=== PATIENT | female | born 1980 | race African-American/Black ===

== ENCOUNTER 2019-12-23 01:57 | Emergency (ER) | payer MEDICAID ==
[~2019-12-23] VITALS: Ht 167.6 cm; Wt 91.0 kg
[~2019-12-23 01:57] MED LIST: ALBU6.7H11; NASOI; SITA1TAB8 PO
[2019-12-23 03:55] LABS: BASOPHILS % 0.9 % (0.0-2.0); EOSINOPHILS % 1.5 % (0.0-5.0); HEMATOCRIT. 37.1 % (36.0-48.0); HEMOGLOBIN. 12.4 g/dL (12.0-16.0); LYMPHOCYTES % 30.4 % (20.0-50.0); MEAN CORPUSCULAR HEMOGLOBIN 30.2 pg (28.0-32.0); MEAN CORPUSCULAR VOLUME 90.2 fL (81.0-99.0); MEAN PLATELET VOLUME 8.9 fl (7.4-10.4); MONOCYTES % 7.8 % (2.0-8.0); NEUTROPHILS % 59.4 % (40.0-76.0); PLATELET 371 x1000/uL (130-400); RED BLOOD CELL COUNT 4.11 mill/uL (4.2-5.4); RED CELL DISTRIBUTION WIDTH 13.9 % (11.6-14.6)
[2019-12-23 04:05] LABS: CHLORIDE 106 mEq/L (98-107)
[2019-12-23 05:08] VITALS: BP 96/65
== END 2019-12-23 05:09 | disposition home or self-care (01) ==
LOC: ER 01:57
DX: R07.89 Other chest pain (principal); M25.512 Pain in left shoulder; E11.9 Type 2 diabetes mellitus without complications; J45.909 Unspecified asthma, uncomplicated
CPT/HCPCS: 36415; 71045; 80053; 81025; 84484; 85025; 85379; 93005; 99285

== ENCOUNTER 2021-12-24 10:30 | Emergency (ER) | payer MEDICAID ==
[~2021-12-24] VITALS: Ht 165.1 cm; Wt 97.0 kg
[~2021-12-24 10:30] MED LIST changes: -ALBU6.7H11; +ALBU6.7H15
[2021-12-24] MEDS ORDERED: LACTATED RINGERS 1,000 ML IV SCH (10:45)
[2021-12-24 11:23] LABS: BASOPHILS % 0.6 % (0.0-2.0); EOSINOPHILS % 0.8 % (0.0-5.0); HEMATOCRIT. 40.8 % (36.0-48.0); HEMOGLOBIN. 13.6 g/dL (12.0-16.0); LYMPHOCYTES % 28.1 % (20.0-50.0); MEAN CORPUSCULAR HEMOGLOBIN 30.3 pg (28.0-32.0); MEAN CORPUSCULAR VOLUME 91.1 fL (81.0-99.0); MEAN PLATELET VOLUME 8.9 fl (7.4-10.4); MONOCYTES % 5.5 % (2.0-8.0); PLATELET 405 x1000/uL (130-400); RED BLOOD CELL COUNT 4.48 mill/uL (4.2-5.4); RED CELL DISTRIBUTION WIDTH 12.8 % (11.6-14.6)
[2021-12-24 11:29] LABS: CHLORIDE 104 mEq/L (98-107)
[2021-12-24 11:35] LABS: BETA HYDROXYBUTYRATE 0.2 mMol/L (0.0-0.3)
[2021-12-24] MEDS ORDERED: METF-874 MT (14:53)
[2021-12-24] MEDS ORDERED: DULA0.75 SQ (14:53)
[2021-12-24] MEDS ORDERED: GLIP10TA10 MT (14:53)
[2021-12-24] MEDS ORDERED: METFORMIN HCL 500MG TABLET PO ONE (15:00)
[2021-12-24] MEDS ORDERED: GLIPIZIDE XL 2.5MG TABLET PO ONE (15:00)
[2021-12-24 15:20] VITALS: BP 109/72
[2021-12-24] MEDS ORDERED: METF-416 MT (15:56)
== END 2021-12-24 15:30 | disposition home or self-care (01) ==
LOC: ER 10:30
DX: E11.65 Type 2 diabetes mellitus with hyperglycemia (principal); Z76.0 Encounter for issue of repeat prescription; J45.909 Unspecified asthma, uncomplicated; Z91.040 Latex allergy status; Z88.2 Allergy status to sulfonamides; Z88.8 Allergy status to other drugs, medicaments and biological substances; Z79.899 Other long term (current) drug therapy; Z98.890 Other specified postprocedural states
CPT/HCPCS: 36415; 80053; 82010; 82962; 83605; 83880; 84484; 85025; 99283

== ENCOUNTER 2022-04-14 09:35 | Emergency (ER) | payer MEDICAID ==
[~2022-04-14] VITALS: Ht 165.1 cm; Wt 96.0 kg
[~2022-04-14 09:35] MED LIST changes: +DULA0.75 SQ; +GLIP10TA10 MT; +METF-416 MT; +METF-874 MT
[2022-04-14 10:25] VITALS: BP 98/66
[2022-04-14] MEDS ORDERED: KETOROLAC 30MG/ML VIAL IV STA (10:32)
[2022-04-14] MEDS ORDERED: ONDANSETRON HCL 4MG/2ML INJ IV STA (10:32)
[2022-04-14] MEDS ORDERED: SODIUM CHLORIDE 0.9% 1,000 ML IV ONE (10:45)
[2022-04-14 10:48] LABS: BASOPHILS % 0.7 % (0.0-2.0); HEMATOCRIT. 42.1 % (36.0-48.0); LYMPHOCYTES % 25.2 % (20.0-50.0); MEAN CORPUSCULAR HEMOGLOBIN 30.4 pg (28.0-32.0); MEAN CORPUSCULAR VOLUME 91.5 fL (81.0-99.0); MEAN PLATELET VOLUME 9.3 fl (7.4-10.4); NEUTROPHILS % 65.1 % (40.0-76.0); PLATELET 425 x1000/uL (130-400); RED CELL DISTRIBUTION WIDTH 13.8 % (11.6-14.6)
[2022-04-14 10:50] LABS: CLARITY URINE CLEAR (CLEAR); COLOR URINE YELLOW (YELLOW); KETONES URINE 1+ (NEGATIVE); LEUKOCYTE ESTERASE URINE NEGATIVE (NEGATIVE); NITRITE URINE NEGATIVE (NEGATIVE); OCCULT BLOOD URINE NEGATIVE (NEGATIVE); PH URINE 5.5 (4.5-8.0); PROTEIN URINE NEGATIVE (NEGATIVE); SPECIFIC GRAVITY URINE 1.025 (1.005-1.030)
[2022-04-14 10:53] LABS: CHLORIDE 105 mEq/L (98-107)
[2022-04-14] MEDS ORDERED: LACT10SO30 MT (12:09)
== END 2022-04-14 12:21 | disposition home or self-care (01) ==
LOC: ER 09:35
DX: R11.2 Nausea with vomiting, unspecified (principal); T50.995A Adverse effect of other drugs, medicaments and biological substances, initial encounter; Y92.9 Unspecified place or not applicable; J45.901 Unspecified asthma with (acute) exacerbation; E11.9 Type 2 diabetes mellitus without complications; Z79.4 Long term (current) use of insulin; Z88.2 Allergy status to sulfonamides; Z88.8 Allergy status to other drugs, medicaments and biological substances; Z91.040 Latex allergy status
CPT/HCPCS: 36415; 70450; 80053; 81003; 83690; 85025; 96361; 96374; 96375; 99284; J1885; J2405; J7030

== ENCOUNTER 2022-08-16 10:10 | Emergency (ER) | payer MEDICAID, OTHER ==
[~2022-08-16] VITALS: Ht 162.6 cm; Wt 93.0 kg
[~2022-08-16 10:10] MED LIST changes: +LACT10SO30 MT
[2022-08-16] MEDS ORDERED: ALBUTEROL (0.083%) 2.5MG/3ML NEB HHN STA (10:34)
[2022-08-16] MEDS ORDERED: IPRATROPIUM BROMIDE (0.02%) 0.5MG/2.5ML NEB HHN STA (10:34)
[2022-08-16] MEDS ORDERED: PREDNISONE 20MG TABLET PO STA (10:34)
[2022-08-16 10:45] LABS: BASOPHILS % 0.7 % (0.0-2.0); EOSINOPHILS % 3.2 % (0.0-5.0); HEMATOCRIT. 38.3 % (36.0-48.0); HEMOGLOBIN. 13.1 g/dL (12.0-16.0); MEAN CORPUSCULAR HEMOGLOBIN 31.3 pg (28.0-32.0); MEAN CORPUSCULAR VOLUME 91.7 fL (81.0-99.0); MEAN PLATELET VOLUME 8.8 fl (7.4-10.4); NEUTROPHILS % 66.1 % (40.0-76.0); PLATELET 410 x1000/uL (130-400); RED BLOOD CELL COUNT 4.17 mill/uL (4.2-5.4); RED CELL DISTRIBUTION WIDTH 13.5 % (11.6-14.6)
[2022-08-16 11:00] LABS: CHLORIDE 103 mEq/L (98-107)
[2022-08-16 11:06] LABS: HCG SCREEN NEGATIVE
[2022-08-16] MEDS ORDERED: PRED10TA MT (13:11)
[2022-08-16 14:03] VITALS: BP 109/75
== END 2022-08-16 14:08 | disposition home or self-care (01) ==
LOC: ER 10:10
DX: J45.901 Unspecified asthma with (acute) exacerbation (principal); E11.9 Type 2 diabetes mellitus without complications; Z88.8 Allergy status to other drugs, medicaments and biological substances; Z88.2 Allergy status to sulfonamides; Z91.040 Latex allergy status; Z79.899 Other long term (current) drug therapy; Z98.890 Other specified postprocedural states
CPT/HCPCS: 36415; 71045; 80053; 83880; 84484; 84703; 85025; 85379; 93005; 94640; 99285; J7512; Z7610

== ENCOUNTER 2022-09-20 14:37 | Emergency (ER) | payer MEDICAID ==
[~2022-09-20] VITALS: Ht 167.6 cm; Wt 73.0 kg
[~2022-09-20 14:37] MED LIST changes: +PRED10TA MT
[2022-09-20 14:55] VITALS: BP 120/82
[2022-09-20] MEDS ORDERED: KETOROLAC 60MG/2ML VIAL IM ONE (16:00)
[2022-09-20] MEDS ORDERED: ACETAMINOPHEN 325MG TABLET PO ONE (16:00)
[2022-09-20] MEDS ORDERED: METHOCARBAMOL 750MG TABLET PO SCH (16:00)
[2022-09-20] MEDS ORDERED: IBUP-2028 MT (17:10)
[2022-09-20] MEDS ORDERED: TOPUD PO (17:10)
[2022-09-20] MEDS ORDERED: LIDO1ADH23 TP (17:10)
[2022-09-20] MEDS ORDERED: METH-653 MT (17:10)
== END 2022-09-20 17:47 | disposition home or self-care (01) ==
LOC: ER 14:37
DX: M51.36 Other intervertebral disc degeneration, lumbar region (principal); E11.9 Type 2 diabetes mellitus without complications; J45.909 Unspecified asthma, uncomplicated; Z91.040 Latex allergy status; Z88.2 Allergy status to sulfonamides; Z88.8 Allergy status to other drugs, medicaments and biological substances; Z98.890 Other specified postprocedural states; Z79.899 Other long term (current) drug therapy
CPT/HCPCS: 72110; 72170; 99284; J1885

== ENCOUNTER 2023-03-20 20:04 | Emergency (ER) | payer MEDICAID, OTHER ==
[~2023-03-20] VITALS: Ht 167.6 cm; Wt 95.0 kg
[~2023-03-20 20:04] MED LIST changes: +IBUP-2028 MT; +LIDO1ADH23 TP; +METH-653 MT; +TOPUD PO
[2023-03-20] MEDS ORDERED: IBUP-2030 MT (22:34)
[2023-03-20] MEDS ORDERED: IBUPROFEN 800MG TABLET PO ONE (22:45)
[2023-03-20 23:13] VITALS: BP 118/82
== END 2023-03-20 23:15 | disposition home or self-care (01) ==
LOC: ER 20:04
DX: R68.89 Other general symptoms and signs (principal); V49.59XA Passenger injured in collision with other motor vehicles in traffic accident, initial encounter; Y93.89 Activity, other specified; Y92.89 Other specified places as the place of occurrence of the external cause; Y99.8 Other external cause status; E11.9 Type 2 diabetes mellitus without complications; Z79.899 Other long term (current) drug therapy
CPT/HCPCS: 99282

== ENCOUNTER 2025-04-24 04:56 | Emergency (ER) | payer MEDICAID, OTHER ==
[~2025-04-24] VITALS: Ht 165.1 cm; Wt 78.0 kg
[~2025-04-24 04:56] MED LIST changes: -GLIP10TA10 MT; +GLIP10TA17 MT; +IBUP-2030 MT; -LACT10SO30 MT; +LACT10SO81 MT; +METF-1150 MT; -METF-874 MT
[2025-04-24 04:58] VITALS: O2SAT 99
[2025-04-24 06:15] LABS: EOSINOPHILS % 2.2 % (0.0-5.0); HEMOGLOBIN. 13.1 g/dL (12.0-16.0); LYMPHOCYTES % 36.9 % (20.0-50.0); MEAN CORPUSCULAR HEMOGLOBIN 30.8 pg (28.0-32.0); MEAN CORPUSCULAR HGB CONC 33.6 g/dL (31.0-37.0); MEAN CORPUSCULAR VOLUME 91.6 fL (81.0-99.0); MEAN PLATELET VOLUME 9.1 fl (7.4-10.4); MONOCYTES % 9.8 % (2.0-8.0); NEUTROPHILS % 50.1 % (40.0-76.0); PLATELET 340 x1000/uL (130-400); RED BLOOD CELL COUNT 4.26 mill/uL (4.2-5.4); RED CELL DISTRIBUTION WIDTH 13.5 % (11.6-14.6); WHITE BLOOD COUNT 7.6 x1000/uL (4.5-11.0)
[2025-04-24 06:24] LABS: CHLORIDE 104 mEq/L (98-107); HCG SCREEN NEGATIVE; POTASSIUM 3.9 mEq/L (3.5-5.1); SODIUM 137 mEq/L (136-145)
[2025-04-24 06:25] LABS: CARBON DIOXIDE 24 mEq/L (21-32)
[2025-04-24 06:26] LABS: CALCIUM 9.4 mg/dL (8.7-10.4)
[2025-04-24 06:30] LABS: CREATININE 0.8 mg/dL (0.6-1.0)
[2025-04-24 06:31] LABS: UREA NITROGEN BLOOD 13 mg/dL (9-23)
[2025-04-24 08:13] LABS: TROPONIN I HIGH SENSITIVITY < 4 ng/L (3.0-34)
[2025-04-24 08:14] LABS: GLUCOSE 275 mg/dL (70-105)
[2025-04-24] MEDS: IBUPROFEN 600MG TABLET PO ONE (08:30)
[2025-04-24 09:15] VITALS: BP 129/85; PULSE 88; RESP 14; TEMP 36.9; O2SAT 100
== END 2025-04-24 09:17 | disposition home or self-care (01) ==
LOC: ER 04:56
DX: M79.622 Pain in left upper arm (principal); E11.9 Type 2 diabetes mellitus without complications; J45.909 Unspecified asthma, uncomplicated; Z88.2 Allergy status to sulfonamides; Z79.899 Other long term (current) drug therapy
CPT/HCPCS: 80048; 84703; 85025; 84484; 36415; 71045; 73030; 93005; 99285; Z7610 ×3